=== PATIENT | male | born 1980 | race Hispanic/Latino ===

== ENCOUNTER 2021-06-27 23:18 | Inpatient (IN) | payer BC, SELFPAY ==
[2021-06-28 00:15] LABS: Mean Corpuscular HGB CONC 35.6 g/dL (32.0-36.0); Mean Corpuscular Hemoglobin 35.8 pg (27.0-31.0); Mean Platelet Volume 8.1 fL (7.4-10.4); Platelet Count 131 thou/uL (130-400); RBC Distribution Width 11.2 % (11.5-14.5)
[2021-06-28 00:39] LABS: Band 49 % (5-11); Lymphocytes 6 % (21-51); MDiff Complete? YES; Macrocytosis MODERATE=16-30 cells (100X) (0-5/hpf); Metamyelocyte 1 % (0-0); Monocytes 4 % (0-10); Neutrophil 40 % (42-75); Platelet Morphology Comment Appears Adequate; Reflex for Review?? YES; Vacuoles SLIGHT
[2021-06-28] MEDS ORDERED: Morphine 4 MG/ML VIAL ONE (01:22)
[2021-06-28] MEDS ORDERED: Morphine 2 MG/ML VIAL ONE (01:22)
[2021-06-28 02:11] LABS: ALT (SGPT) 20 U/L (8-55); AST (SGOT) 21 U/L (5-34); Albumin 2.7 g/dL (3.5-5.0); Alkaline Phosphatase 96 U/L (40-110); Anion Gap 15 mmol/L (10-20); BUN (Urea Nitrogen) 14 mg/dL (8.9-20.6); Bilirubin, Total 1.7 mg/dL (0.2-1.2); Calc. Creatinine Clearance 0 mL/min (70-130); Calcium 7.7 mg/dL (7.8-10.44); Carbon Dioxide 16 mmol/L (22-29); Chloride 107 mmol/L (98-107); Globulin 3.4 g/dL (2.4-3.5); Glucose 285 mg/dL (70-105); Potassium 3.7 mmol/L (3.5-5.1); Protein, Total 6.1 g/dL (6.0-8.3); Sodium 134 mmol/L (136-145)
[2021-06-28] MEDS ORDERED: Dextrose 50% Abboject 50 ML SYRINGE SLOW IVP PRN ×2 (02:46→08:03)
[2021-06-28] MEDS ORDERED: Dextrose 5% in Water 1,000 ML IV PRN ×2 (02:46→08:03)
[2021-06-28] MEDS ORDERED: HumaLOG 300 UNITS/3 ML VIAL SC PRN (02:46)
[2021-06-28] MEDS ORDERED: Sodium Chloride 0.9% 1,000 ML IV SCH (03:00)
[2021-06-28 03:10] LABS: Lactic Acid 3.8 mmol/L (0.5-2.2)
[2021-06-28] MEDS ORDERED: diphenhydrAMINE 25 MG CAP ONE (03:20)
[2021-06-28] MEDS ORDERED: Vancomycin 1 GM/200 ML BAG ONE (03:20)
[2021-06-28] MEDS ORDERED: Ondansetron ODT 4 MG TAB PO PRN (08:03)
[2021-06-28] MEDS ORDERED: Bisacodyl 10 MG SUPP PR PRN (08:03)
[2021-06-28] MEDS ORDERED: Ondansetron PF 4 MG/2 ML Vial IVP PRN (08:03)
[2021-06-28] MEDS ORDERED: Senokot S 8.6-50 MG TAB PO PRN (08:03)
[2021-06-28] MEDS ORDERED: Bisacodyl 5 MG TAB PO PRN (08:03)
[2021-06-28] MEDS: Sodium Chloride 0.9% 1,000 ML IV SCH ×4 (08:47→22:25)
[2021-06-28 08:49] VITALS: BMI 25.8
[2021-06-28] MEDS ORDERED: ceFAZolin 2 GM/Dextrose 50 ML 2 GM in Premix Bag 1 BAG IVPB SCH (08:51)
[2021-06-28] MEDS: Insulin Glargine 30 UNITS/0.3 ML VIAL SC SCH ×2 (09:01→22:25)
[2021-06-28 10:55] LABS: Hemoglobin A1c 10.9 % (4.0-6.0)
[2021-06-28] MEDS: ceFAZolin (BATCH) 2 GM in Premix Bag 1 BAG IVPB SCH ×2 (11:11→18:12)
[2021-06-28] MEDS: HumaLOG 300 UNITS/3 ML VIAL SC PRN (11:12)
[2021-06-28 12:18] LABS: Bacteria/HPF None Seen HPF (None Seen); Bilirubin Negative (Negative); Blood, Urine Trace (Negative); Clarity Clear (Clear); Glucose, Urine (Dipstick) Greater than 1000 mg/dL (Negative); Ketone, Urine 80 mg/dL (Negative); Leukocyte Negative Leu/uL (Negative); Nitrite Negative (Negative); Protein, Urine (Dipstick) 50 mg/dL (Neg-Trace); RBC/HPF 0-3 HPF (0-3); Specific Gravity, Urine 1.041 (1.002-1.036); Squamous Epithelial None Seen HPF (0-3); Urobilinogen 12 mg/dL (Less than 2); WBC/HPF 0-3 HPF (0-3)
[2021-06-28 12:20] LABS: Urine Culture Reflex No No
[2021-06-28] MEDS ORDERED: Heparin 1,000 UNITS/ML VIAL ONE (12:32)
[2021-06-28 12:44] LABS: Creatinine, Urine 72.51 mg/dL (63-166)
[2021-06-28] MEDS: Acetaminophen 325 MG TAB PO PRN (20:20)
[2021-06-29] MEDS: ceFAZolin (BATCH) 2 GM in Premix Bag 1 BAG IVPB SCH ×2 (00:57→08:25)
[2021-06-29] MEDS: Acetaminophen 325 MG TAB PO PRN (01:03)
[2021-06-29 04:18] LABS: Anion Gap 12 mmol/L (10-20); BUN (Urea Nitrogen) 14 mg/dL (8.9-20.6); Calc. Creatinine Clearance 151 mL/min (70-130); Calcium 7.5 mg/dL (7.8-10.44); Carbon Dioxide 17 mmol/L (22-29); Chloride 106 mmol/L (98-107); Cholesterol 84 mg/dl (< 200 Desired); Glucose 199 mg/dL (70-105); HDL Cholesterol Less than 8 mg/dL (>60 Neg Risk); Magnesium 1.9 mg/dL (1.6-2.6); Sodium 132 mmol/L (136-145); Triglycerides 141 mg/dL (Less than 150)
[2021-06-29 04:21] LABS: Band 26 % (5-11); Hypochromia SLIGHT = 6-15 cells (100X) (0-5/hpf); Lymphocytes 11 % (21-51); MDiff Complete? YES; Mean Corpuscular Hemoglobin 35.1 pg (27.0-31.0); Mean Platelet Volume 7.5 fL (7.4-10.4); Monocytes 2 % (0-10); Neutrophil 61 % (42-75); Platelet Count 146 thou/uL (130-400); Platelet Morphology Comment Appears Adequate; RBC Distribution Width 11.3 % (11.5-14.5); Red Blood Cell (RBC) Count 3.41 mill/uL (4.70-6.10); White Blood Cell (WBC) Count 12.3 thou/uL (4.8-10.8)
[2021-06-29] MEDS: HumaLOG 300 UNITS/3 ML VIAL SC PRN (05:52)
[2021-06-29] MEDS: Sodium Chloride 0.9% 1,000 ML IV SCH ×2 (08:25→12:29)
[2021-06-29] MEDS: Enoxaparin Sodium 40 MG/0.4 ML SYRINGE SC SCH (08:26)
[2021-06-29] MEDS: Insulin Glargine 30 UNITS/0.3 ML VIAL SC SCH ×2 (08:26→22:17)
[2021-06-29] MEDS: Potassium Chloride 20 MEQ TAB PO SCH ×2 (08:26→22:17)
[2021-06-29] MEDS ORDERED: Morphine 4 MG/ML VIAL SLOW IVP PRN (11:44)
[2021-06-29] MEDS ORDERED: HYDROcodone/Acetaminophen 5/325 mg Tablet PO PRN (11:44)
[2021-06-29] MEDS: Vancomycin 1 GM in Premix Bag 1 BAG IVPB SCH (12:29)
[2021-06-29] MEDS: Clindamycin/D5W 900 MG in Premix Bag 1 BAG IVPB SCH ×2 (12:29→22:41)
[2021-06-29] MEDS ORDERED: Neomycin-Polymyxin 1 ML AMP ONE ×2 (15:00→15:14)
[2021-06-29] MEDS ORDERED: Bupivacaine PF 0.5% 30 ML VIAL ONE (15:00)
[2021-06-29] MEDS ORDERED: Bacitracin Zinc Ointment 30 gm TUBE ONE (15:00)
[2021-06-29] MEDS: Cefepime 2 GM in Sodium Chloride 0.9% 100 ML IVPB SCH (15:48)
[2021-06-29] MEDS ORDERED: HYDROmorphone 0.5 MG/0.5 ML SYRINGE ONE ×2 (15:51→18:50)
[2021-06-29] MEDS ORDERED: fentaNYL Citrate/PF 100 MCG/2 ML SYRINGE ONE (15:51)
[2021-06-29] MEDS ORDERED: Midazolam HCl 2 mg/2 ml Vial ONE ×2 (15:51→18:50)
[2021-06-29] MEDS ORDERED: Ketamine 50 MG/ML (10ML VIAL) ONE (15:52)
[2021-06-29] MEDS ORDERED: Famotidine/PF 20 mg/2ml Vial ONE (15:52)
[2021-06-29] MEDS ORDERED: Lidocaine 1% PF 5 ML VIAL ONE (16:25)
[2021-06-29] MEDS ORDERED: Esmolol 100 MG/10 ML VIAL ONE (16:25)
[2021-06-29] MEDS ORDERED: Albuterol Sulfate HFA (OR ONLY) ONE ×2 (16:25→17:25)
[2021-06-29] MEDS ORDERED: PROPOFOL 200 MG/20 ML VIAL ONE (16:25)
[2021-06-29] MEDS ORDERED: Ketorolac Tromethamine 30 MG/ML VIAL ONE (16:25)
[2021-06-29] MEDS ORDERED: PHENYLEPHRINE-NS 100 MCG/ML 10 ML SYRINGE ONE ×2 (16:25→18:30)
[2021-06-29] MEDS ORDERED: Metoclopramide HCl 10 MG/2 ML VIAL ONE (16:25)
[2021-06-29] MEDS ORDERED: Ondansetron PF 4 MG/2 ML Vial ONE (16:25)
[2021-06-29] MEDS ORDERED: Dexamethasone 20 MG/5 ML VIAL ONE (16:25)
[2021-06-29] MEDS ORDERED: HYDROmorphone 2 MG/ML VIAL ONE ×2 (16:33→18:50)
[2021-06-29] MEDS ORDERED: HYDROmorphone 2 MG/ML VIAL SLOW IVP PRN (17:36)
[2021-06-29] MEDS ORDERED: Meperidine HCl/PF 25 MG/ML VIAL SLOW IVP PRN (17:36)
[2021-06-29] MEDS ORDERED: Promethazine HCl 25 MG/ML VIAL IVPB PRN (17:36)
[2021-06-29] MEDS ORDERED: Ondansetron HCl/PF 4 MG/2 ML Vial IVP PRN (17:36)
[2021-06-29] MEDS ORDERED: Promethazine HCl 25 MG/ML VIAL IM PRN ×2 (17:36→18:59)
[2021-06-29] MEDS ORDERED: diphenhydrAMINE 50 MG/ML VIAL IM PRN (18:59)
[2021-06-29] MEDS ORDERED: fentaNYL Citrate/PF 2,000 MCG in Sodium Chloride 0.9% 60 ML IV PRN (18:59)
[2021-06-29] MEDS ORDERED: diphenhydrAMINE 25 MG CAP PO PRN (18:59)
[2021-06-29] MEDS ORDERED: Naloxone HCl 0.4 mg/ml Vial IV PRN (18:59)
[2021-06-29] MEDS ORDERED: Zolpidem Tartrate 5 MG TAB PO PRN (18:59)
[2021-06-29] MEDS ORDERED: Ondansetron PF 4 MG/2 ML Vial IVP PRN (18:59)
[2021-06-29] MEDS ORDERED: diphenhydrAMINE 50 MG/ML VIAL IVP PRN (18:59)
[2021-06-29] MEDS ORDERED: Communication Order-Pharmacy FS SCH (19:00)
[2021-06-29] MEDS: Senokot S 8.6-50 MG TAB PO SCH (22:17)
[2021-06-30] MEDS: Ketorolac Tromethamine 30 MG/ML VIAL IVP SCH ×5 (00:45→22:57)
[2021-06-30] MEDS: Vancomycin 1 GM in Premix Bag 1 BAG IVPB SCH ×2 (00:45→11:59)
[2021-06-30] MEDS: Cefepime 2 GM in Sodium Chloride 0.9% 100 ML IVPB SCH ×2 (02:17→15:01)
[2021-06-30 03:50] LABS: Base Excess -10.3 mEq/L (-2.0 to +3.0); Calcium, Ionized (venous) 0.92 mmol/L (1.16-1.32); Chloride (VBG) 107 mmol/L (98-106); Hemoglobin (Hb) 13.1 g/dL (13.2-17.3); Potassium (VBG) 4.03 mmol/L (3.70-5.30); Sodium 129.7 mmol/L (133-146); pH (venous) 7.41 (7.32-7.43)
[2021-06-30 03:53] LABS: Actual Bicarbonate (HCO3v) 12 mEq/L (22-28)
[2021-06-30 04:03] LABS: #Basophils 0.1 thou/uL (0.0-0.2); #Lymphocytes 0.7 thou/uL (1.20-3.40); #Monocytes 0.3 thou/uL (0.11-0.59); #Neutrophils 10.7 thou/uL (1.40-6.50); %Basophils 1.2 % (0.0-1.0); %Lymphocytes 5.6 % (21.0-51.0); %Monocytes 2.2 % (0.0-10.0); Hemoglobin 16.9 g/dL (14.0-18.0); Mean Corpuscular HGB CONC 32.1 g/dL (32.0-36.0); Mean Corpuscular Hemoglobin 33.2 pg (27.0-31.0); Mean Platelet Volume 7.5 fL (7.4-10.4); Platelet Count 101 thou/uL (130-400); Red Blood Cell (RBC) Count 5.09 mill/uL (4.70-6.10); White Blood Cell (WBC) Count 11.7 thou/uL (4.8-10.8)
[2021-06-30 04:17] LABS: Anion Gap 16 mmol/L (10-20); BUN (Urea Nitrogen) 20 mg/dL (8.9-20.6); Calc. Creatinine Clearance 143 mL/min (70-130); Calcium 7.7 mg/dL (7.8-10.44); Carbon Dioxide 11 mmol/L (22-29); Chloride 108 mmol/L (98-107); Glucose 260 mg/dL (70-105); Magnesium 2.5 mg/dL (1.6-2.6); Potassium 4.1 mmol/L (3.5-5.1); Sodium 131 mmol/L (136-145)
[2021-06-30] MEDS: Clindamycin/D5W 900 MG in Premix Bag 1 BAG IVPB SCH ×3 (05:41→20:42)
[2021-06-30] MEDS: HumaLOG 300 UNITS/3 ML VIAL SC PRN (05:42)
[2021-06-30] MEDS: Sodium Chloride 0.9% 1,000 ML IV SCH (05:42)
[2021-06-30] MEDS: Enoxaparin Sodium 40 MG/0.4 ML SYRINGE SC SCH (07:53)
[2021-06-30] MEDS: Insulin Glargine 30 UNITS/0.3 ML VIAL SC SCH (07:53)
[2021-06-30] MEDS: Senokot S 8.6-50 MG TAB PO SCH ×2 (07:53→20:42)
[2021-06-30] MEDS ORDERED: Bacitracin Zinc Ointment 30 gm TUBE ONE (15:09)
[2021-06-30] MEDS ORDERED: Midazolam HCl 2 mg/2 ml Vial ONE (15:14)
[2021-06-30] MEDS ORDERED: Ketamine 50 MG/ML (10ML VIAL) ONE (15:14)
[2021-06-30] MEDS ORDERED: fentaNYL Citrate/PF 100 MCG/2 ML SYRINGE ONE (15:15)
[2021-06-30] MEDS ORDERED: HYDROmorphone 2 MG/ML VIAL ONE (15:15)
[2021-06-30] MEDS ORDERED: Famotidine/PF 20 mg/2ml Vial ONE (15:16)
[2021-06-30] MEDS ORDERED: Vancomycin 1 GM/200 ML BAG ONE (15:25)
[2021-06-30] MEDS ORDERED: PROPOFOL 200 MG/20 ML VIAL ONE (15:42)
[2021-06-30] MEDS ORDERED: PHENYLEPHRINE-NS 100 MCG/ML 10 ML SYRINGE ONE (15:42)
[2021-06-30] MEDS ORDERED: Ondansetron PF 4 MG/2 ML Vial ONE (15:42)
[2021-06-30] MEDS ORDERED: Lidocaine 1% PF 5 ML VIAL ONE (15:42)
[2021-06-30] MEDS ORDERED: Tobramycin Sulfate 1.2 GM VIAL ONE (15:45)
[2021-06-30] MEDS ORDERED: Neomycin-Polymyxin 1 ML AMP ONE (15:45)
[2021-06-30] MEDS ORDERED: Morphine Sulfate 2 MG/ML SYRINGE SLOW IVP PRN (17:47)
[2021-06-30] MEDS ORDERED: Meperidine HCl/PF 25 MG/ML VIAL SLOW IVP PRN (17:47)
[2021-06-30] MEDS ORDERED: Promethazine HCl 25 MG/ML VIAL IM PRN (17:47)
[2021-06-30] MEDS ORDERED: Ondansetron HCl/PF 4 MG/2 ML Vial IVP PRN (17:47)
[2021-06-30] MEDS ORDERED: Promethazine HCl 25 MG/ML VIAL IVPB PRN (17:47)
[2021-06-30] MEDS ORDERED: HYDROmorphone 2 MG/ML VIAL SLOW IVP PRN (17:47)
[2021-06-30] MEDS ORDERED: NPH, Human Insulin Isophane 300 UNIT/3 ML VIAL SC SCH (21:00)
[2021-06-30] MEDS ORDERED: Penicillin G Potassium 4 MILL.UNITS in Sodium Chloride 0.9% 100 ML IVPB SCH (21:45)
[2021-07-01 00:08] LABS: Vancomycin, Trough 8.3 ug/mL
[2021-07-01] MEDS: Penicillin G Potassium 4 MILL.UNITS in Sodium Chloride 0.9% 100 ML IVPB SCH ×5 (01:18→17:37)
[2021-07-01] MEDS: Vancomycin 1 GM in Premix Bag 1 BAG IVPB SCH (01:23)
[2021-07-01] MEDS: VANCOMYCIN 1.25 GM/250 ML BAG 1.25 GM in Premix Bag 1 BAG IVPB SCH ×2 (01:51→10:04)
[2021-07-01 03:53] LABS: Anion Gap 13 mmol/L (10-20); BUN (Urea Nitrogen) 26 mg/dL (8.9-20.6); Calc. Creatinine Clearance 141 mL/min (70-130); Calcium 7.1 mg/dL (7.8-10.44); Carbon Dioxide 11 mmol/L (22-29); Chloride 107 mmol/L (98-107); Glucose 290 mg/dL (70-105); Sodium 127 mmol/L (136-145)
[2021-07-01 03:55] LABS: Magnesium 2.7 mg/dL (1.6-2.6)
[2021-07-01 04:02] LABS: Actual Bicarbonate (HCO3v) 15 mEq/L (22-28); Base Excess -8.2 mEq/L (-2.0 to +3.0); Calcium, Ionized (venous) 0.95 mmol/L (1.16-1.32); Chloride (VBG) 104 mmol/L (98-106); Hemoglobin (Hb) 12.7 g/dL (13.2-17.3); Potassium (VBG) 3.56 mmol/L (3.70-5.30); Sodium 128.1 mmol/L (133-146)
[2021-07-01 04:11] LABS: Band 18 % (5-11); Hemoglobin 11.5 g/dL (14.0-18.0); INR-International Normal Ratio 1.3; Lymphocytes 14 % (21-51); MDiff Complete? YES; Macrocytosis SLIGHT = 6-15 cells (100X) (0-5/hpf); Mean Corpuscular HGB CONC 32.3 g/dL (32.0-36.0); Mean Corpuscular Hemoglobin 33.2 pg (27.0-31.0); Mean Platelet Volume 7.2 fL (7.4-10.4); Monocytes 1 % (0-10); Neutrophil 67 % (42-75); Platelet Count 154 thou/uL (130-400); Platelet Morphology Comment Appears Adequate; Prothrombin Time 16.6 sec (12.0-14.7); RBC Distribution Width 11.7 % (11.5-14.5); Red Blood Cell (RBC) Count 3.47 mill/uL (4.70-6.10); White Blood Cell (WBC) Count 18.5 thou/uL (4.8-10.8)
[2021-07-01] MEDS: Clindamycin/D5W 900 MG in Premix Bag 1 BAG IVPB SCH ×3 (04:27→23:01)
[2021-07-01 04:28] LABS: Hep C IgG Ab Non-Reactive (NonReactive); Hep C Index 0.07 S/CO (0-0.79)
[2021-07-01] MEDS: Ketorolac Tromethamine 30 MG/ML VIAL IVP SCH ×3 (06:44→17:36)
[2021-07-01] MEDS: Sodium Chloride 0.9% 1,000 ML IV SCH ×2 (06:45→10:07)
[2021-07-01] MEDS: HumaLOG 300 UNITS/3 ML VIAL SC PRN (06:49)
[2021-07-01] MEDS: Senokot S 8.6-50 MG TAB PO SCH (10:04)
[2021-07-01] MEDS: NPH, Human Insulin Isophane 300 UNIT/3 ML VIAL SC SCH (10:05)
[2021-07-01] MEDS: Enoxaparin Sodium 40 MG/0.4 ML SYRINGE SC SCH (10:06)
[2021-07-01 17:15] LABS: Band 14 % (5-11); Eosinophils 1 % (0-10); Hemoglobin 10.5 g/dL (14.0-18.0); Lymphocytes 19 % (21-51); MDiff Complete? YES; Macrocytosis SLIGHT = 6-15 cells (100X) (0-5/hpf); Mean Corpuscular HGB CONC 33.3 g/dL (32.0-36.0); Mean Corpuscular Hemoglobin 33.6 pg (27.0-31.0); Mean Platelet Volume 7.4 fL (7.4-10.4); Monocytes 4 % (0-10); Neutrophil 60 % (42-75); Platelet Count 145 thou/uL (130-400); Platelet Morphology Comment Appears Adequate; Polychromasia SLIGHT = 2-3 cells (100X) (0-2/hpf); RBC Distribution Width 11.5 % (11.5-14.5); Reactive Lymphocytes 2 % (0-10); Red Blood Cell (RBC) Count 3.12 mill/uL (4.70-6.10); White Blood Cell (WBC) Count 11.2 thou/uL (4.8-10.8)
[2021-07-01] MEDS ORDERED: Midazolam HCl 2 mg/2 ml Vial ONE (20:14)
[2021-07-01] MEDS ORDERED: fentaNYL Citrate/PF 100 MCG/2 ML SYRINGE ONE (20:15)
[2021-07-01] MEDS ORDERED: Bupivacaine PF 0.5% 30 ML VIAL ONE (20:18)
[2021-07-01] MEDS ORDERED: Neomycin-Polymyxin 1 ML AMP ONE (20:18)
[2021-07-01] MEDS ORDERED: Bacitracin Zinc Ointment 30 gm TUBE ONE (20:18)
[2021-07-01] MEDS ORDERED: Clindamycin/D5W 900 mg/50 ml Premix Bag ONE (20:42)
[2021-07-01] MEDS ORDERED: Lidocaine 1% PF 5 ML VIAL ONE (20:58)
[2021-07-01] MEDS ORDERED: Ketorolac Tromethamine 30 MG/ML VIAL ONE (20:58)
[2021-07-01] MEDS ORDERED: PROPOFOL 200 MG/20 ML VIAL ONE (20:58)
[2021-07-01] MEDS ORDERED: Ondansetron PF 4 MG/2 ML Vial ONE (20:58)
[2021-07-01] MEDS ORDERED: Meperidine HCl/PF 25 MG/ML VIAL SLOW IVP PRN (22:20)
[2021-07-01] MEDS ORDERED: HYDROmorphone 2 MG/ML VIAL SLOW IVP PRN (22:20)
[2021-07-01] MEDS ORDERED: Morphine Sulfate 2 MG/ML SYRINGE SLOW IVP PRN (22:20)
[2021-07-01] MEDS ORDERED: Promethazine HCl 25 MG/ML VIAL IM PRN ×2 (22:20→23:41)
[2021-07-01] MEDS ORDERED: Ondansetron HCl/PF 4 MG/2 ML Vial IVP PRN (22:20)
[2021-07-01] MEDS ORDERED: Promethazine HCl 25 MG/ML VIAL IVPB PRN (22:20)
[2021-07-01] MEDS ORDERED: PACU-Morphine 4MG/ML VIAL SLOW IVP PRN (22:20)
[2021-07-01] MEDS ORDERED: Fentanyl 100 MCG/2 ML VIAL ONE (23:07)
[2021-07-01] MEDS ORDERED: Morphine 4 MG/ML VIAL SLOW IVP PRN (23:42)
[2021-07-02] MEDS: Penicillin G Potassium 4 MILL.UNITS in Sodium Chloride 0.9% 100 ML IVPB SCH ×7 (01:00→21:31)
[2021-07-02] MEDS: Senokot S 8.6-50 MG TAB PO SCH ×3 (01:01→21:20)
[2021-07-02] MEDS: Ketorolac Tromethamine 30 MG/ML VIAL IVP SCH (01:42)
[2021-07-02] MEDS: NPH, Human Insulin Isophane 300 UNIT/3 ML VIAL SC SCH ×2 (01:42→09:46)
[2021-07-02] MEDS: Sodium Chloride 0.9% 1,000 ML IV SCH ×2 (01:43→15:56)
[2021-07-02 04:09] LABS: Hemoglobin 10.2 g/dL (14.0-18.0); Mean Corpuscular HGB CONC 33.7 g/dL (32.0-36.0); Mean Corpuscular Hemoglobin 33.6 pg (27.0-31.0); Mean Corpuscular Volume 99.7 fL (78.0-98.0); Mean Platelet Volume 7.3 fL (7.4-10.4); Platelet Count 138 thou/uL (130-400); RBC Distribution Width 11.7 % (11.5-14.5); Red Blood Cell (RBC) Count 3.02 mill/uL (4.70-6.10); White Blood Cell (WBC) Count 8.8 thou/uL (4.8-10.8)
[2021-07-02 04:23] LABS: Anion Gap 8 mmol/L (10-20); BUN (Urea Nitrogen) 19 mg/dL (8.9-20.6); Calc. Creatinine Clearance 171 mL/min (70-130); Calcium 6.7 mg/dL (7.8-10.44); Carbon Dioxide 22 mmol/L (22-29); Chloride 103 mmol/L (98-107); Glucose 205 mg/dL (70-105); Potassium 3.2 mmol/L (3.5-5.1); Sodium 130 mmol/L (136-145)
[2021-07-02 04:52] LABS: Band 10 % (5-11); Lymphocytes 12 % (21-51); MDiff Complete? YES; Metamyelocyte 1 % (0-0); Myelocyte 1 % (0-0); Neutrophil 76 % (42-75)
[2021-07-02] MEDS: Clindamycin/D5W 900 MG in Premix Bag 1 BAG IVPB SCH ×3 (05:54→20:27)
[2021-07-02] MEDS ORDERED: Potassium Chloride 20 MEQ TAB PO SCH (07:15)
[2021-07-02] MEDS: Enoxaparin Sodium 40 MG/0.4 ML SYRINGE SC SCH (08:05)
[2021-07-02 08:38] LABS: HIV (1/2) Antibody/Antigen Non-Reactive (NonReactive); HIV 1/2 INDEX 0.09 S/CO (<1.00)
[2021-07-02 09:20] LABS: Hep B Surface AG-Rflx Sendout Negative (Negative); Hepatitis B Core Total Negative (Negative); Hepatitis B Surface AB-Sendout Reactive (.)
[2021-07-02] MEDS ORDERED: Neomycin-Polymyxin 1 ML AMP ONE (17:59)
[2021-07-02] MEDS ORDERED: Bacitracin Zinc Ointment 30 gm TUBE ONE (17:59)
[2021-07-02] MEDS ORDERED: Mineral Oil Sterile 10 ML VIAL ONE (17:59)
[2021-07-02] MEDS ORDERED: fentaNYL Citrate/PF 100 MCG/2 ML SYRINGE ONE ×2 (18:47→22:45)
[2021-07-02] MEDS ORDERED: Clindamycin/D5W 900 mg/50 ml Premix Bag ONE (19:01)
[2021-07-02] MEDS ORDERED: Morphine 2 MG/ML VIAL ONE (19:24)
[2021-07-02] MEDS ORDERED: Ondansetron PF 4 MG/2 ML Vial ONE (22:41)
[2021-07-02] MEDS ORDERED: Lidocaine 1% PF 5 ML VIAL ONE (22:41)
[2021-07-02] MEDS ORDERED: PROPOFOL 200 MG/20 ML VIAL ONE (22:41)
[2021-07-02] MEDS ORDERED: HYDROmorphone 2 MG/ML VIAL ONE (23:25)
[2021-07-02] MEDS ORDERED: Thrombin 5000 UNITS/5 ML VIAL ONE (23:47)
[2021-07-03] MEDS ORDERED: HYDROmorphone 2 MG/ML VIAL SLOW IVP PRN (01:30)
[2021-07-03] MEDS ORDERED: Meperidine HCl/PF 25 MG/ML VIAL SLOW IVP PRN (01:30)
[2021-07-03] MEDS ORDERED: Promethazine HCl 25 MG/ML VIAL IVPB PRN (01:30)
[2021-07-03] MEDS ORDERED: Ondansetron HCl/PF 4 MG/2 ML Vial IVP PRN (01:30)
[2021-07-03] MEDS ORDERED: Promethazine HCl 25 MG/ML VIAL IM PRN ×2 (01:30→10:09)
[2021-07-03] MEDS ORDERED: Fentanyl 100 MCG/2 ML VIAL ONE (01:38)
[2021-07-03] MEDS: NPH, Human Insulin Isophane 300 UNIT/3 ML VIAL SC SCH ×3 (03:13→22:35)
[2021-07-03] MEDS: Penicillin G Potassium 4 MILL.UNITS in Sodium Chloride 0.9% 100 ML IVPB SCH ×6 (03:54→23:51)
[2021-07-03] MEDS: Sodium Chloride 0.9% 1,000 ML IV SCH ×2 (03:54→18:23)
[2021-07-03 04:51] LABS: Anion Gap 12 mmol/L (10-20); BUN (Urea Nitrogen) 9 mg/dL (8.9-20.6); Calc. Creatinine Clearance 193 mL/min (70-130); Calcium 7.1 mg/dL (7.8-10.44); Carbon Dioxide 21 mmol/L (22-29); Chloride 104 mmol/L (98-107); Glucose 166 mg/dL (70-105); Magnesium 1.9 mg/dL (1.6-2.6); Potassium 3.6 mmol/L (3.5-5.1); Sodium 133 mmol/L (136-145)
[2021-07-03 05:56] LABS: Band 8 % (5-11); Hemoglobin 10.7 g/dL (14.0-18.0); Lymphocytes 14 % (21-51); MDiff Complete? YES; Mean Corpuscular HGB CONC 33.9 g/dL (32.0-36.0); Mean Corpuscular Hemoglobin 33.9 pg (27.0-31.0); Mean Corpuscular Volume 99.9 fL (78.0-98.0); Mean Platelet Volume 7.1 fL (7.4-10.4); Monocytes 4 % (0-10); Neutrophil 74 % (42-75); Platelet Count 169 thou/uL (130-400); RBC Distribution Width 11.7 % (11.5-14.5); Red Blood Cell (RBC) Count 3.17 mill/uL (4.70-6.10); White Blood Cell (WBC) Count 10.3 thou/uL (4.8-10.8)
[2021-07-03] MEDS: Clindamycin/D5W 900 MG in Premix Bag 1 BAG IVPB SCH ×3 (06:12→22:32)
[2021-07-03] MEDS ORDERED: hydrALAZINE 20 MG/ML VIAL SLOW IVP PRN (08:45)
[2021-07-03] MEDS: Lisinopril 10 MG TAB PO SCH (10:01)
[2021-07-03] MEDS: Enoxaparin Sodium 40 MG/0.4 ML SYRINGE SC SCH (10:01)
[2021-07-03] MEDS: Senokot S 8.6-50 MG TAB PO SCH ×2 (10:02→22:42)
[2021-07-03] MEDS ORDERED: Meperidine HCl/PF 25 MG/ML VIAL IM PRN (10:08)
[2021-07-03] MEDS: HYDROcodone/Acetaminophen 7.5/325 mg Tablet PO PRN (11:25)
[2021-07-03] MEDS: cloNIDine 0.1 MG TAB PO SCH ×2 (11:26→22:43)
[2021-07-03] MEDS: HumaLOG 300 UNITS/3 ML VIAL SC PRN (16:34)
[2021-07-04] MEDS: Penicillin G Potassium 4 MILL.UNITS in Sodium Chloride 0.9% 100 ML IVPB SCH ×5 (04:11→20:21)
[2021-07-04 04:27] LABS: #Eosinphils 0.1 thou/uL (0.0-0.7); #Lymphocytes 1.7 thou/uL (1.20-3.40); #Monocytes 0.4 thou/uL (0.11-0.59); #Neutrophils 6.2 thou/uL (1.40-6.50); %Basophils 0.5 % (0.0-1.0); %Eosinophils 0.9 % (0.0-10.0); %Lymphocytes 19.8 % (21.0-51.0); %Monocytes 4.8 % (0.0-10.0); %Neutrophils 73.9 % (42.0-75.0); Hemoglobin 9.6 g/dL (14.0-18.0); Mean Corpuscular HGB CONC 34.3 g/dL (32.0-36.0); Mean Corpuscular Hemoglobin 34.2 pg (27.0-31.0); Mean Corpuscular Volume 99.7 fL (78.0-98.0); Mean Platelet Volume 7.2 fL (7.4-10.4); Platelet Count 174 thou/uL (130-400); RBC Distribution Width 11.8 % (11.5-14.5); Red Blood Cell (RBC) Count 2.79 mill/uL (4.70-6.10); White Blood Cell (WBC) Count 8.4 thou/uL (4.8-10.8)
[2021-07-04 04:47] LABS: Anion Gap 10 mmol/L (10-20); BUN (Urea Nitrogen) 6 mg/dL (8.9-20.6); Calc. Creatinine Clearance 183 mL/min (70-130); Calcium 7.2 mg/dL (7.8-10.44); Carbon Dioxide 23 mmol/L (22-29); Chloride 103 mmol/L (98-107); Glucose 166 mg/dL (70-105); Magnesium 1.9 mg/dL (1.6-2.6); Potassium 3.6 mmol/L (3.5-5.1); Sodium 132 mmol/L (136-145)
[2021-07-04] MEDS: Clindamycin/D5W 900 MG in Premix Bag 1 BAG IVPB SCH ×3 (05:41→22:14)
[2021-07-04] MEDS: HumaLOG 300 UNITS/3 ML VIAL SC PRN (05:44)
[2021-07-04] MEDS: HYDROcodone/Acetaminophen 7.5/325 mg Tablet PO PRN ×2 (09:17→20:08)
[2021-07-04] MEDS: Enoxaparin Sodium 40 MG/0.4 ML SYRINGE SC SCH (09:18)
[2021-07-04] MEDS: Lisinopril 10 MG TAB PO SCH (09:18)
[2021-07-04] MEDS: NPH, Human Insulin Isophane 300 UNIT/3 ML VIAL SC SCH ×2 (09:18→20:11)
[2021-07-04] MEDS: cloNIDine 0.1 MG TAB PO SCH ×2 (09:18→22:14)
[2021-07-04] MEDS: Sodium Chloride 0.9% 1,000 ML IV SCH (09:20)
[2021-07-04] MEDS: Senokot S 8.6-50 MG TAB PO SCH ×2 (09:51→20:20)
[2021-07-05] MEDS: Penicillin G Potassium 4 MILL.UNITS in Sodium Chloride 0.9% 100 ML IVPB SCH ×6 (00:36→20:59)
[2021-07-05] MEDS: Sodium Chloride 0.9% 1,000 ML IV SCH ×2 (02:36→16:38)
[2021-07-05 05:23] LABS: #Eosinphils 0.1 thou/uL (0.0-0.7); #Lymphocytes 1.9 thou/uL (1.20-3.40); #Monocytes 0.5 thou/uL (0.11-0.59); #Neutrophils 4.7 thou/uL (1.40-6.50); %Basophils 0.7 % (0.0-1.0); %Eosinophils 1.2 % (0.0-10.0); %Lymphocytes 25.8 % (21.0-51.0); %Monocytes 7.3 % (0.0-10.0); %Neutrophils 65.1 % (42.0-75.0); Hemoglobin 9.9 g/dL (14.0-18.0); Mean Corpuscular HGB CONC 33.1 g/dL (32.0-36.0); Mean Corpuscular Hemoglobin 33.5 pg (27.0-31.0); Mean Platelet Volume 7.5 fL (7.4-10.4); Platelet Count 208 thou/uL (130-400); RBC Distribution Width 12.8 % (11.5-14.5); Red Blood Cell (RBC) Count 2.96 mill/uL (4.70-6.10); White Blood Cell (WBC) Count 7.2 thou/uL (4.8-10.8)
[2021-07-05 05:24] LABS: Anion Gap 9 mmol/L (10-20); BUN (Urea Nitrogen) 5 mg/dL (8.9-20.6); Calc. Creatinine Clearance 204 mL/min (70-130); Calcium 7.6 mg/dL (7.8-10.44); Carbon Dioxide 24 mmol/L (22-29); Chloride 102 mmol/L (98-107); Glucose 126 mg/dL (70-105); Magnesium 1.9 mg/dL (1.6-2.6); Potassium 3.9 mmol/L (3.5-5.1); Sodium 131 mmol/L (136-145)
[2021-07-05] MEDS: Clindamycin/D5W 900 MG in Premix Bag 1 BAG IVPB SCH (05:47)
[2021-07-05] MEDS: Enoxaparin Sodium 40 MG/0.4 ML SYRINGE SC SCH (10:45)
[2021-07-05] MEDS: Lisinopril 10 MG TAB PO SCH (10:46)
[2021-07-05] MEDS: NPH, Human Insulin Isophane 300 UNIT/3 ML VIAL SC SCH ×2 (10:46→21:00)
[2021-07-05] MEDS: cloNIDine 0.1 MG TAB PO SCH ×2 (10:46→20:59)
[2021-07-05] MEDS: Senokot S 8.6-50 MG TAB PO SCH ×2 (11:04→21:48)
[2021-07-05] MEDS: HumaLOG 300 UNITS/3 ML VIAL SC PRN (13:19)
[2021-07-05] MEDS: HYDROcodone/Acetaminophen 7.5/325 mg Tablet PO PRN (20:58)
[2021-07-06] MEDS: Penicillin G Potassium 4 MILL.UNITS in Sodium Chloride 0.9% 100 ML IVPB SCH ×5 (00:40→12:15)
[2021-07-06] MEDS: Acetaminophen 325 MG TAB PO PRN ×2 (06:19→10:51)
[2021-07-06 08:32] LABS: #Lymphocytes 1.9 thou/uL (1.20-3.40); #Monocytes 0.5 thou/uL (0.11-0.59); #Neutrophils 5.1 thou/uL (1.40-6.50); %Basophils 0.6 % (0.0-1.0); %Eosinophils 0.6 % (0.0-10.0); %Lymphocytes 25.2 % (21.0-51.0); %Monocytes 5.9 % (0.0-10.0); %Neutrophils 67.7 % (42.0-75.0); Hemoglobin 10.5 g/dL (14.0-18.0); Mean Corpuscular HGB CONC 34.4 g/dL (32.0-36.0); Mean Corpuscular Hemoglobin 34.8 pg (27.0-31.0); Mean Platelet Volume 7.2 fL (7.4-10.4); Platelet Count 228 thou/uL (130-400); RBC Distribution Width 13.2 % (11.5-14.5); Red Blood Cell (RBC) Count 3.02 mill/uL (4.70-6.10); White Blood Cell (WBC) Count 7.5 thou/uL (4.8-10.8)
[2021-07-06 08:46] LABS: ALT (SGPT) 35 U/L (8-55); AST (SGOT) 47 U/L (5-34); Albumin 2.2 g/dL (3.5-5.0); Alkaline Phosphatase 167 U/L (40-110); Anion Gap 10 mmol/L (10-20); BUN (Urea Nitrogen) Less than 4 mg/dL (8.9-20.6); Bilirubin, Total 0.7 mg/dL (0.2-1.2); Calc. Creatinine Clearance 166 mL/min (70-130); Calcium 7.6 mg/dL (7.8-10.44); Carbon Dioxide 25 mmol/L (22-29); Chloride 100 mmol/L (98-107); Globulin 4.1 g/dL (2.4-3.5); Glucose 181 mg/dL (70-105); Protein, Total 6.3 g/dL (6.0-8.3); Sodium 131 mmol/L (136-145)
[2021-07-06] MEDS: Enoxaparin Sodium 40 MG/0.4 ML SYRINGE SC SCH (09:04)
[2021-07-06] MEDS: NPH, Human Insulin Isophane 300 UNIT/3 ML VIAL SC SCH (09:04)
[2021-07-06] MEDS: Lisinopril 10 MG TAB PO SCH (09:05)
[2021-07-06] MEDS: Senokot S 8.6-50 MG TAB PO SCH (09:06)
[2021-07-06] MEDS: cloNIDine 0.1 MG TAB PO SCH (10:51)
[2021-07-06 11:37] VITALS: BP 140/82; TEMP 98.4
[2021-07-06] MEDS: HumaLOG 300 UNITS/3 ML VIAL SC PRN (12:15)
[2021-07-06] MEDS ORDERED: NPH, Human Insulin Isophane 300 UNIT/3 ML VIAL SC SCH (21:00)
== END 2021-07-06 16:45 | disposition home or self-care (01) | DRG 853 ==
LOC: ERS 23:18 → ERHOLD 06-28 03:10 → IMCU/EMU 06-28 08:46 → SURG A 07-03 13:21
PROVIDERS: ADMIT Internal Medicine; ATTEND Family Medicine
PROC: 0JBH0ZZ Excision of Left Lower Arm Subcutaneous Tissue and Fascia, Open Approach (ICD-10-PCS; principal; 2021-06-29)
PROC: 0MB40ZZ Excision of Left Elbow Bursa and Ligament, Open Approach (ICD-10-PCS; 2021-06-29)
PROC: 0KND0ZZ Release Left Hand Muscle, Open Approach (ICD-10-PCS; 2021-06-29)
PROC: 0R9M3ZZ Drainage of Left Elbow Joint, Percutaneous Approach (ICD-10-PCS; 2021-06-29)
PROC: 0JBH0ZZ Excision of Left Lower Arm Subcutaneous Tissue and Fascia, Open Approach (ICD-10-PCS; 2021-06-30)
PROC: 02HV33Z Insertion of Infusion Device into Superior Vena Cava, Percutaneous Approach (ICD-10-PCS; 2021-07-01)
PROC: B548ZZA Ultrasonography of Superior Vena Cava, Guidance (ICD-10-PCS; 2021-07-01)
PROC: 0JBH0ZZ Excision of Left Lower Arm Subcutaneous Tissue and Fascia, Open Approach (ICD-10-PCS; 2021-07-01)
PROC: 3E0102A Introduction of Anti-Infective Envelope into Subcutaneous Tissue, Open Approach (ICD-10-PCS; 2021-07-01)
PROC: 0HREX74 Replacement of Left Lower Arm Skin with Autologous Tissue Substitute, Partial Thickness, External Approach (ICD-10-PCS; 2021-07-02)
PROC: 0JBH0ZZ Excision of Left Lower Arm Subcutaneous Tissue and Fascia, Open Approach (ICD-10-PCS; 2021-07-02)
PROC: 0HREXK3 Replacement of Left Lower Arm Skin with Nonautologous Tissue Substitute, Full Thickness, External Approach (ICD-10-PCS; 2021-07-02)
PROC: 0HBJXZZ Excision of Left Upper Leg Skin, External Approach (ICD-10-PCS; 2021-07-02)
DX: A40.0 Sepsis due to streptococcus, group A (principal); M72.6 Necrotizing fasciitis; L03.114 Cellulitis of left upper limb; E11.52 Type 2 diabetes mellitus with diabetic peripheral angiopathy with gangrene; E87.2 Acidosis; E87.1 Hypo-osmolality and hyponatremia; L02.414 Cutaneous abscess of left upper limb; R65.20 Severe sepsis without septic shock; M71.022 Abscess of bursa, left elbow; E83.51 Hypocalcemia; E88.09 Other disorders of plasma-protein metabolism, not elsewhere classified; K76.0 Fatty (change of) liver, not elsewhere classified; E11.65 Type 2 diabetes mellitus with hyperglycemia; I10 Essential (primary) hypertension; E87.6 Hypokalemia; Z91.14 Patient's other noncompliance with medication regimen
CPT/HCPCS: 36415; 36416; 36569; 76705; 80048; 80053; 80061; 80202; 81001; 82010; 82570; 82805; 83036; 83605; 83735; 83930; 83935; 84300; 84443; 84540; 85025; 85060; 85610; 85652; 85730; 86140; 86704; 86706; 86708; 86803; 87040; 87070; 87077; 87081; 87205; 87340; 87389; 88305; 88312; 93005; 93010; 96361; 96365; 96374; C1713; C1751; C1889; J0690; J0692; J1100; J1170; J1644; J1650; J1815; J1885; J2250; J2270; J2405; J2540; J2704; J2765; J3010; J3260; J3370; J3490; J7050; J7620; Q0162; Q4101; S0020; S0028

== ENCOUNTER 2021-07-26 12:25 | Outpatient (CLI) | payer SELFPAY | END 2021-07-26 12:26 | disposition home or self-care (01) | LOC: LABBT 12:25 | PROVIDERS: ATTEND Orthopaedic Surgery Hand Surgery | DX: M72.6 Necrotizing fasciitis (principal); Z20.822 Contact with and (suspected) exposure to COVID-19 | CPT/HCPCS: U0003; U0005 ==

== ENCOUNTER 2021-07-27 06:40 | Day surgery (SDC) | payer OTHER ==
[2021-07-26 09:13] VITALS: BMI 24.1
[2021-07-27] MEDS ORDERED: Bupivacaine PF 0.5% 30 ML VIAL ONE ×2 (08:07→10:54)
[2021-07-27] MEDS ORDERED: Mineral Oil Sterile 10 ML VIAL ONE (08:07)
[2021-07-27] MEDS ORDERED: Neomycin-Polymyxin 1 ML AMP ONE ×2 (08:08→08:10)
[2021-07-27] MEDS ORDERED: Thrombin 5000 UNITS/5 ML VIAL ONE ×2 (08:08→10:55)
[2021-07-27] MEDS ORDERED: Bacitracin Zinc Ointment 30 gm TUBE ONE ×2 (08:08→11:21)
[2021-07-27] MEDS ORDERED: Sodium Chloride 0.9% 100 ML ONE (09:35)
[2021-07-27] MEDS ORDERED: CEFAZOLIN 2 GM VIAL ONE (09:35)
[2021-07-27] MEDS ORDERED: fentaNYL Citrate/PF 100 MCG/2 ML SYRINGE ONE (09:36)
[2021-07-27] MEDS ORDERED: Dexmedetomidine 200 MCG/2 ML VIAL ONE (09:36)
[2021-07-27] MEDS ORDERED: Lidocaine 1% PF 5 ML VIAL ONE (09:48)
[2021-07-27] MEDS ORDERED: Dexamethasone 20 MG/5 ML VIAL ONE (09:48)
[2021-07-27] MEDS ORDERED: Ondansetron PF 4 MG/2 ML Vial ONE (09:48)
[2021-07-27] MEDS ORDERED: PROPOFOL 200 MG/20 ML VIAL ONE (09:48)
[2021-07-27] MEDS ORDERED: Ketorolac Tromethamine 30 MG/ML VIAL ONE (09:48)
[2021-07-27] MEDS ORDERED: PHENYLEPHRINE-NS 100 MCG/ML 10 ML SYRINGE ONE (09:48)
[2021-07-27] MEDS ORDERED: Promethazine HCl 25 MG/ML VIAL IVPB PRN (12:15)
[2021-07-27] MEDS ORDERED: Promethazine HCl 25 MG/ML VIAL IM PRN (12:15)
[2021-07-27] MEDS ORDERED: Ondansetron HCl/PF 4 MG/2 ML Vial IVP PRN (12:15)
== END 2021-07-27 13:37 | disposition home or self-care (01) ==
LOC: SDC 06:40
PROVIDERS: ATTEND Orthopaedic Surgery Hand Surgery
PROC: 0HRDX74 Replacement of Right Lower Arm Skin with Autologous Tissue Substitute, Partial Thickness, External Approach (ICD-10-PCS; principal; 2021-07-27)
DX: M72.6 Necrotizing fasciitis (principal); E11.9 Type 2 diabetes mellitus without complications; Z79.4 Long term (current) use of insulin; Z79.899 Other long term (current) drug therapy
CPT/HCPCS: 36416; J0690; J1100; J1885; J2405; J2704; J3490; S0020